=== PATIENT | male | born 1965 | race African-American/Black ===

== ENCOUNTER 2018-07-24 10:25 | Emergency (ER) | payer OTHER ==
[~2018-07-24] VITALS: Ht 177.8 cm; Wt 127.0 kg
[~2018-07-24 10:25] MED LIST: DECADRON IM; FLEXERIL PO; GLYBURIDE-METF1 EAC1; HYDROCODONE-ACE15 ML PO; HYDROCODONE-AP1 EAC6 PO; IBUPROFEN 800800 M1 PO; MULTI-VITAMIN1 EAC5 PO; NORCO 5-325 TA1 EACH PO; NORCO 7.5-3251 EACH PO; ZESTRIL40 MG; ZESTRIL40 MG PO
[2018-07-24] MEDS ORDERED: PERCOCET PO (10:54)
[2018-07-24] MEDS ORDERED: CYCLOBENZAPRINE5 MG PO (10:59)
[2018-07-24 11:07] VITALS: BP 130/89
== END 2018-07-24 11:08 | disposition home or self-care (01) ==
LOC: ER 10:25
DX: G89.29 Other chronic pain (principal); M54.5 Low back pain; Z88.0 Allergy status to penicillin; Z88.6 Allergy status to analgesic agent; Z88.8 Allergy status to other drugs, medicaments and biological substances